=== PATIENT | male | born 1970 | race Caucasian/White ===

== ENCOUNTER → 2020-10-20 | Day surgery (SDC) | payer OTHER ==
[2020-10-19 15:06] LABS: COVID AG,FIA SOURCE NASOPHARYNGEAL
[~2020-10-20] MED LIST: ALBUTEROL SULFATE 2.5 MG/0.5 ML NEB SOLUTION NEB ONE; BACL10TA PO; BENZ100C68 PO; BENZOCAINE 20% 50 MCG/SPRAY 57 GM TP ONE; BUDE10.2 IH; CITA10TA99 PO; DAPA10TA PO; DIPH-654 PO; DULA1.5P SQ; FentaNYL CITRATE PF 100 MCG/2 ML VIAL ONE; GABA-1181 PO; GUAIF600 PO; HYDR25TA2 PO; INSU100V3 INJ; LIDOCAINE 2% 30 ML JELLY TP ONE; LIDOCAINE 4% 50 ML SOLUTION TP ONE; LOSA50TA37 PO; LOVA20TA73 PO; METF-960 PO; MIDAZOLAM HCL 2 MG/2 ML VIAL ONE; MONT-35 PO; MethylPREDNISolone SOD SUCC 125 MG/2 ML VIAL IVP ONE; MethylPREDNISolone SOD SUCC 125 MG/2 ML VIAL ONE; MethylPREDNISolone SOD SUCC 40 MG/ML VIAL ONE; OMEP20 PO; ONDA-104 PO; OXYGEN THERAPY IH SCH; SODIUM CHLORIDE 0.9% 1,000 ML IV ONE; SODIUM CHLORIDE 0.9% 1,000 ML ONE
[2020-10-20 07:19] LABS: GLUCOMETER DEV NAME(LOC) SDS.; GLUCOSE,POINT OF CARE 130 MG/DL (70-110)
== END | disposition home or self-care (01) ==
LOC: SURGERY 05:56
PROVIDERS: ATTEND Internal Medicine Critical Care Medicine
DX: J38.4 Edema of larynx (principal); B37.0 Candidal stomatitis
CPT/HCPCS: 31623; 31624; 71045; 82962; 87015; 87070; 87101; 87205; 87206; 87220; 87426; 93005; C9803; J2250; J2920; J3010; J7030; 88184; 88185; J2930; J7613; Z7610

== ENCOUNTER 2021-09-17 08:33 | Day surgery (SDC) | payer OTHER ==
[2021-09-14 13:29] LABS: COVID AG,FIA SOURCE NASOPHARYNGEAL
[~2021-09-17] VITALS: Ht 162.6 cm; Wt 136.8 kg
[~2021-09-17 08:33] MED LIST changes: -ALBUTEROL SULFATE 2.5 MG/0.5 ML NEB SOLUTION NEB ONE; -BENZOCAINE 20% 50 MCG/SPRAY 57 GM TP ONE; -FentaNYL CITRATE PF 100 MCG/2 ML VIAL ONE; -LIDOCAINE 2% 30 ML JELLY TP ONE; -LIDOCAINE 4% 50 ML SOLUTION TP ONE; +LOSA-382 PO; -LOSA50TA37 PO; +METF-1211 PO; -METF-960 PO; -MIDAZOLAM HCL 2 MG/2 ML VIAL ONE; -MethylPREDNISolone SOD SUCC 125 MG/2 ML VIAL IVP ONE; -MethylPREDNISolone SOD SUCC 125 MG/2 ML VIAL ONE; -MethylPREDNISolone SOD SUCC 40 MG/ML VIAL ONE; -OXYGEN THERAPY IH SCH
[2021-09-17] MEDS ORDERED: PROPOFOL 1% 20 ML VIAL IVP ONE (08:34)
[2021-09-17] MEDS ORDERED: LIDOCAINE/PF 2% 5 ML SYRINGE IVP ONE (08:34)
[2021-09-17 09:21] LABS: GLUCOMETER DEV NAME(LOC) SDS.; GLUCOSE,POINT OF CARE 160 MG/DL (70-110)
== END 2021-09-17 11:30 | disposition home or self-care (01) ==
LOC: SURGERY 08:33
PROVIDERS: ATTEND Student in an Organized Health Care Education/Training Program
DX: D50.9 Iron deficiency anemia, unspecified (principal); K44.9 Diaphragmatic hernia without obstruction or gangrene; K31.89 Other diseases of stomach and duodenum; I10 Essential (primary) hypertension; E11.9 Type 2 diabetes mellitus without complications; J45.909 Unspecified asthma, uncomplicated; Z79.899 Other long term (current) drug therapy; Z98.890 Other specified postprocedural states
CPT/HCPCS: 43239; 82962; 87426; C1769; C9803; J2704; J3490; J7030; 88305; 88312; 88313